=== PATIENT | male | born 1970 | race Caucasian/White ===

== ENCOUNTER → 2017-08-13 | Outpatient (CLI) | payer OTHER ==
--- NOTE | 2017-08-13 12:01 | RADIOLOGY REPORT (SQ) ---
EXAM DESCRIPTION: CT BONE LENGTH COMPLETED DATE/TIME: 08/13/2017 10:34 am REASON FOR STUDY: LLD (Q72.819) Q72.819 CONGENITAL SHORTENING OF UNSPECIFIED LOWER LIMB COMPARISON: None. TECHNIQUE: CT scanogram of the bilateral lower extremities is performed including pelvis to ankles. Measurements of femur, tibia, and entire lower extremities performed by the radiologist and saved to PACS. All CT scanners at this facility use dose modulation, iterative reconstruction, and/or weight based d osing when appropriate to reduce radiation dose to as low as reasonably achievable (ALARA). [facility]: Dose Right [facility]: CareDose [facility]: Dose Right [facility]: Teradose 4D [facility]: [employer] RADIATION DOSE: mGy. LIMITATIONS: None. FINDINGS: RIGHT: FEMUR: 45.8 cm. TIBIA: 36.88 cm. TOTAL RIGHT LOWER EXTREMITY LENGTH: 83.2 cm. LEFT: FEMUR: 45.82 cm. TIBIA: 37.09 cm. TOTAL LEFT LOWER EXTREMITY LENGTH: 83.5 cm. IMPRESSION: LEG LENGTH MEASUREMENTS DETAILED ABOVE. COMMENT: Please note: Femur show measured from top of the femoral head to the intercondylar notch. Two views for measured from the interspinous notch to the tibial plafond. Total lower extremity moris gth was measured from the top of the femoral head to the tibial plafond. TECHNICAL DOCUMENTATION: JOB ID: [id number] Quality ID # [id number]: Final reports with documentation of one or more dose reduction techniques (e.g., Au tomated exposure control, adjustment of the mA and/or kV according to patient size, use of iterative reconstruction technique) 2010 [employer]- All Rights Reserved
== END ==
LOC: RAD 10:15
PROVIDERS: ATTEND Podiatrist Foot & Ankle Surgery
DX: Q72.819 Congenital shortening of unspecified lower limb (principal)
CPT/HCPCS: 77073

== ENCOUNTER → 2017-09-03 | Outpatient (CLI) | payer OTHER ==
--- NOTE | 2017-09-03 09:42 | RADIOLOGY REPORT (SQ) ---
EXAM DESCRIPTION: MRI RT LOWER EXTREMITY WITHOUT COMPLETED DATE/TIME: 09/03/2017 9:26 am REASON FOR STUDY: AVULSION FX FIFITH METATARSAL COMPARISON: Right foot films 05/02/2016, 06/03/2016, 07/01/2016 TECHNIQUE: T1-weighted, T2-weighted, and gradient echo noncontrast multiplanar imaging of the right foot. LIMITATIONS: None. FINDINGS: MARROW SIGNAL: No marrow signal alteration. No occult fracture. No evidence for osteo ne crosis. In particular, the base of the 5th metatarsal is normal. No marrow signal abnormalities wor risome for occult fracture. The distal 5th metatarsal has a healed osteotomy for bunionette correction. There is healing across the old osteotomy, with a tiny bone spur along plantar aspect best shown on sagittal image 4. At the 5th MTP joint, joint space narrowing from osteoarthritis is present. There are small subcorti diamond in the articular surface of the 5th metatarsal head best shown on axial image 12 and sagittal gabo ge 4. JOINT EFFUSION: No significant effusions. PLANTAR FASCIA: Normal as visualized. TARSOMETATARSAL AND TOE ARTICULATIONS: Anatomic. Mild degenerative changes first and 5th metatarsal phalangeal joint. INTERMETATARSAL SPACES AND PLANTAR PLATES: Intact. No soft tissue mass to suggest a neuroma. SOFT TISSUES: No masses. No fibrosis. OTHER: No other significant finding. IMPRESSION: Healed right distal 5th metatarsal osteotomy with a small bone spur along its plantar as pect. 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 No marrow edema worrisome for radiographically occult fracture or stress fracture TECHNICAL DOCUMENTATION: JOB ID: [id number] [email or web address]- All Rights Reserved
== END ==
LOC: RAD 08:31
PROVIDERS: ATTEND Student in an Organized Health Care Education/Training Program
DX: S92.351A Displaced fracture of fifth metatarsal bone, right foot, initial encounter for closed fracture (principal); X58.XXXA Exposure to other specified factors, initial encounter

== ENCOUNTER 2018-07-20 09:05 | Day surgery (SDC) | payer OTHER ==
[~2018-07-20 09:05] MED LIST: PROPOFOL INJ 200 MG/20 ML VIAL IV ONE
[2018-07-20 10:30] VITALS: BP 122/86
--- NOTE | 2018-07-20 13:31 | Operative Report ---
Operative Report DATE OF SURGERY: 07/20/18 Operative Report: The risks, benefits and alternatives of the procedure including the risks of bleeding, perforation requiring surgery are explained to the patient in detail and informed consent is obtained. The patient is placed in the left, lateral decubital position. Timeout was called. Propofol medication is administered. A rectal examination is done which did not reveal any masses, tears or fissures. An Olympus videoscope was inserted into the patient's rectum. The scope was then carefully advanced all the way to the cecum. The cecum was identified by the usual anatomical landmarks including the ileocecal valve as well as the appendiceal office. Photodocumentation is obtained. The scope was then sequentially pulled back via the rest segments of the colon including the ascending colon, hepatic flexure, transverse colon, splenic flexure, descending colon and finally into the rectosigmoid portions of the colon. Retroflexion maneuvers performed. PREOPERATIVE DIAGNOSIS: Colorectal cancer screening. Family history of colon cancer POSTOPERATIVE DIAGNOSIS: Colon polyp is removed via biopsy forceps. 2 polyps noted in the sigmoid. OPERATION: Colonoscopy with biopsy SURGEON: MORE LÓPEZ ANESTHESIA: LMAC TISSUE REMOVED OR ALTERED: As noted above. COMPLICATIONS: None. ESTIMATED BLOOD LOSS: None. INTRAOPERATIVE FINDINGS: As noted above. PROCEDURE: Patient tolerated the procedure well. No immediate postprocedure complications are noted. Patient discharged in good condition. Discharge date 07/20/2018. Discharge diet: Regular. Discharge activity: Regular. 2-3 week follow-up to discuss findings. Patient is instructed call the office or proceed to the emergency room should have any further problems or questions. Wait on the pathology. 3-5 year surveillance colonoscopy.
== END 2018-07-20 10:29 | disposition home or self-care (01) ==
LOC: END 09:05
PROVIDERS: ATTEND Internal Medicine Gastroenterology
DX: Z12.11 Encounter for screening for malignant neoplasm of colon (principal); K63.5 Polyp of colon; Z80.0 Family history of malignant neoplasm of digestive organs; Z79.899 Other long term (current) drug therapy; Z88.1 Allergy status to other antibiotic agents
CPT/HCPCS: 45380; 88305 ×2; J2704